=== PATIENT | male | born 1995 | race Two or more races ===

== ENCOUNTER 2024-12-19 09:11 | Emergency (ER) | payer OTHER ==
[~2024-12-19] VITALS: Ht 182.9 cm; Wt 77.0 kg
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
--- NOTE | 2024-12-19 10:38 | DVH ---
CLINICAL INDICATION: R/o fracture. Swelling noted TECHNIQUE: XY R KNEE 3V XRAY Comparison: None FINDINGS/IMPRESSION: : There is no evidence of acute fracture or dislocation. Moderate joint effusion. Intramedullary rods partially visualized in the femur which extending to the adjacent soft-tissue. Cl inical correlation advised.
[2024-12-19 10:41] LABS: Hematocrit 47.0 % (41.0-53.0); Hemoglobin 16.4 g/dL (13.5-17.5); Mean Corpuscular Hemoglobin 30.2 pg (28.0-32.0); Mean Corpuscular Volume 86.2 fL (80.0-100.0); Nucleated Red Blood Cells % 0.1 %
[2024-12-19 10:54] LABS: Chloride 107 mmol/L (98-107); Potassium 4.0 mmol/L (3.5-5.1); Sodium 142 mmol/L (136-145)
[2024-12-19 10:55] LABS: Anion Gap 11 (5-15); Calcium 9.6 mg/dL (8.7-10.4); Carbon Dioxide 24 mmol/L (20-31)
[2024-12-19 11:00] LABS: BUN/Creatinine Ratio 11.6 (10.0-20.0); Blood Urea Nitrogen 10 mg/dL (9-23); Glucose 97 mg/dL (74-106)
[2024-12-19 18:08] VITALS: BP 100/64; PULSE 92; RESP 16; TEMP 98.7; O2SAT 97
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
== END 2024-12-19 18:10 | disposition home or self-care (01) ==
LOC: ER 09:11
DX: M25.461 Effusion, right knee (principal); Z79.899 Other long term (current) drug therapy
CPT/HCPCS: 29505; 36415; 73562; 80048; 85025; 85652; 86141; 87205; 89051